=== PATIENT | male | born 1995 | race Caucasian/White ===

== ENCOUNTER 2016-08-06 09:08 | Emergency (ER) | payer OTHER ==
[~2016-08-06] VITALS: Ht 190.5 cm; Wt 92.6 kg
[2016-08-06 09:15] VITALS: TEMP 37.3; Ht 190.5 cm; Wt 92.6 kg
[2016-08-06] MEDS ORDERED: IBUP-1428 PO (09:30)
[2016-08-06] MEDS ORDERED: SODIUM CHLORIDE 0.9% 1000ML 1,000 ML IV STA (09:43)
[2016-08-06 10:12] VITALS: O2SAT 98
[2016-08-06 10:15] LABS: URINE APPEARANCE CLEAR (CLEAR); URINE BILIRUBIN NEG (NEG); URINE COLOR YELLOW; URINE NITRITE NEG (NEG); URINE PH 5.5 (4.5-7.5); UROBILINOGEN NEG (NEG)
[2016-08-06 10:17] LABS: BASO % 0.2 %; BASO ABS # 0.02 K/uL (0-0.2); COMPLETE YES; EOS % 1.3 %; HEMATOCRIT 40.9 % (42-52); IG% 0.3 %; LYMPH % 11.5 %; LYMPH ABS # 1.27 K/uL (1.2-3.4); MEAN CELL VOLUME 79.1 fL (80-100); MEAN CORPUSCULAR HEMOGLOBIN 28.4 pg (25-34); MEAN CORPUSCULAR HGB CONC 35.9 g/dl (32-36); MEAN PLATELET VOLUME 9.4 fL (7.4-10.4); MONO % 6.8 %; NEUT % 79.9 %; PLATELET COUNT 196 K/uL (130-400); RED BLOOD COUNT 5.17 M/uL (4.7-6.1); WHITE BLOOD COUNT 11.05 K/uL (4.8-10.8)
[2016-08-06 10:21] LABS: MANUAL MICROSCOPIC REQUIRED? NO; REVIEW REQ? NO
[2016-08-06 10:35] LABS: INR 1.1 (0.9-1.1); PARTIAL THROMBOPLASTIN RATIO 1.2
[2016-08-06 10:37] LABS: BUN/CREATININE RATIO 9.5 (10-20); CALCIUM 8.9 mg/dl (8.5-10.1); POTASSIUM 3.9 mmol/L (3.5-5.1)
[2016-08-06 10:48] LABS: THYROID STIMULATING HORMONE 0.887 uIu/ml (0.300-4.500)
[2016-08-06 12:31] VITALS: BP 138/76; PULSE 79; O2SAT 97
--- NOTE | 2016-08-06 19:25 | EMERGENCY ROOM VISIT NOTE ---
History Report prepared by Scribe: Brisa Siddiqui Under the Supervision of: Dr. Chad Birmingham M.D. First contact with patient: 09:43 Chief Complaint: ILLNESS Stated Complaint: HYPERTENSION History of Present Illness The patient is a 21 year old male who presents to the Emergency Room with complaints of persistent hypertension. He was dancing at [facility]'s [employer] [place] () this weekend when he suddenly started getting increasingly confused and became very anxious. He went to the Medic station and had his blood pressure checked, and it was found to be elevated, at 161/86. The Medic station referred him to the ED for further evaluation. The patient states he feels exhausted here in the ED and admits to some lightheadedness currently. He states he was drinking water and Gatorade throughout the weekend and denies using any energy drinks or caffeine pills. He does admit to taking 800 mg of Ibuprofen twice daily for "inflammation" in his feet, and notes he started the Ibuprofen about a week before started. His parents deny any family history of hypertension. The patient denies LOC, headache, fevers, chills, diaphoresis, visual changes, neck pain, chest pain, breathing difficulties, nausea, vomiting , abdominal pain, back pain, melena, hematochezia, urinary symptoms, numbness, weakness, lymphadenopathy, rash, or other complaints. He denies any headaches, chest pain, abdominal pain, nausea, vomiting, diarrhea , melena, hematochezia or urinary symptoms. Source of History: patient Onset: PIPELAYING FITTER Position: other (global) Timing: other (persistent) Review of Systems See HPI for pertinent positives and negatives. A total of ten systems were reviewed and were otherwise negative. Past Medical & Surgical Medical Problems: (1) No significant medical problems (2) No significant past surgical history Social History Smoking Status: Never Smoker Alcohol Use: occasionally Drug Use: none Marital Status: single Housing Status: lives with roommate Occupation Status: [employer] student Current/Historical Medications Scheduled PRN Ibuprofen (Motrin), 800 MG PO Q8H PRN for Pain or Fever Allergies Coded Allergies: Nut Tree (Unverified Allergy, Severe, ANAPHYLAXIS, 08/06/16) Peanut (Verified Allergy, Severe, ANAPHYLAXIS, 08/06/16) Physical Exam Vital Signs Date Time Temp Pulse Resp B/P Pulse Ox O2 Delivery O2 Flow Rate FiO2 08/06/16 12:31 79 16 138/76 97 08/06/16 10:49 72 20 130/71 97 Room Air 08/06/16 10:44 71 08/06/16 10:12 98 Room Air 08/06/16 09:15 37.3 96 18 161/86 98 Room Air Physical Exam GENERAL: Awake, alert, well-appearing, in no distress HENT: Normocephalic, atraumatic. Oropharynx unremarkable. EYES: Normal conjunctiva. Sclera non-icteric. NECK: Supple. No nuchal rigidity. FROM. No JVD. RESPIRATORY: Clear to auscultation. CARDIAC: Regular rate, normal rhythm. Extremities warm and well perfused. Pulses equal. ABDOMEN: Soft, non-distended. No tenderness to palpation. No rebound or guarding. No masses. RECTAL: Deferred. MUSCULOSKELETAL: Chest examination reveals no tenderness. The back is symmetrical on inspection without obvious abnormality. There is no CVA tenderness to palpation. No joint edema. LOWER EXTREMITIES: Calves are equal size bilaterally and non-tender. No edema. No discoloration. NEURO: Normal sensorium. No sensory or motor deficits noted. SKIN: No rash or jaundice noted. Medical Decision & Procedures Laboratory Results 08/06/16 10:09 Red Blood Count 5.17, Mean Corpuscular Volume 79.1, Mean Corpuscular Hemoglobin 28.4, Mean Corpuscular Hemoglobin Concent 35.9, Mean Platelet Volume 9.4, Neutrophils (%) (Auto) 79.9, Lymphocytes (%) (Auto) 11.5, Monocytes (%) (Auto) 6.8, Eosinophils (%) (Auto) 1.3, Basophils (%) (Auto) 0.2, Neutrophils # (Auto) 8.84, Lymphocytes # (Auto) 1.27, Monocytes # (Auto) 0.75, Eosinophils # (Auto) 0.14, Basophils # (Auto) 0.02 08/06/16 10:09 Test 08/06/16 09:15 08/06/16 10:09 Urine Color YELLOW Urine Appearance CLEAR (CLEAR) Urine pH 5.5 (4.5-7.5) Urine Specific [place] 1.000 (1.000-1.030) Urine Protein NEG (NEG) Urine Glucose (UA) NEG (NEG) Urine Ketones NEG (NEG) Urine Occult Blood NEG (NEG) Urine Nitrite NEG (NEG) Urine Bilirubin NEG (NEG) Urine Urobilinogen NEG (NEG) Urine Leukocyte Esterase NEG (NEG) White Blood Count 11.05 K/uL (4.8-10.8) Red Blood Count 5.17 M/uL (4.7-6.1) Hemoglobin 14.7 g/dL (14.0-18.0) Hematocrit 40.9 % (42-52) Mean Corpuscular Volume 79.1 fL (80-100) Mean Corpuscular Hemoglobin 28.4 pg (25-34) Mean Corpuscular Hemoglobin Concent 35.9 g/dl (32-36) Platelet Count 196 K/uL (130-400) Mean Platelet Volume 9.4 fL (7.4-10.4) Neutrophils (%) (Auto) 79.9 % Lymphocytes (%) (Auto) 11.5 % Monocytes (%) (Auto) 6.8 % Eosinophils (%) (Auto) 1.3 % Basophils (%) (Auto) 0.2 % Neutrophils # (Auto) 8.84 K/uL (1.4-6.5) Lymphocytes # (Auto) 1.27 K/uL (1.2-3.4) Monocytes # (Auto) 0.75 K/uL (0.11-0.59) Eosinophils # (Auto) 0.14 K/uL (0-0.5) Basophils # (Auto) 0.02 K/uL (0-0.2) RDW Standard Deviation 34.5 fL (36.4-46.3) RDW Coefficient of Variation 11.9 % (11.5-14.5) Immature Granulocyte % (Auto) 0.3 % Immature Granulocyte # (Auto) 0.03 K/uL (0.00-0.02) Prothrombin Time 12.0 SECONDS (9.0-12.0) Prothromb Time International Ratio 1.1 (0.9-1.1) Activated Partial Thromboplast Time 32.2 SECONDS (21.0-31.0) Partial Thromboplastin Ratio 1.2 Anion Gap 9.0 mmol/L (3-11) Est Creatinine Clear Calc Drug Dose 138.5 ml/min Estimated GFR () 123.3 Estimated GFR (Non- 106.4 BUN/Creatinine Ratio 9.5 (10-20) Calcium Level 8.9 mg/dl (8.5-10.1) Total Bilirubin 0.7 mg/dl (0.2-1) Direct Bilirubin 0.2 mg/dl (0-0.2) Aspartate Amino Transf (AST/SGOT) 37 U/L (15-37) Alanine Aminotransferase (ALT/SGPT) 24 U/L (12-78) Alkaline Phosphatase 95 U/L (45-117) Total Creatine Kinase 930 U/L (39-308) Total Protein 7.5 gm/dl (6.4-8.2) Albumin 4.1 gm/dl (3.4-5.0) Lipase 214 U/L (73-393) Thyroid Stimulating Hormone (TSH) 0.887 uIu/ml (0.300-4.500) Laboratory results reviewed by me Medications Administered Medications (Trade) Dose Ordered Sig/Raul Route Start Time Stop Time Status Last Admin Dose Admin Sodium Chloride (Nss 1000ml) 1,000 ml @ 999 mls/hr Q1H1M STAT IV 08/06/16 09:43 08/06/16 10:43 DC 08/06/16 09:43 999 MLS/HR ED Course 0943: NSS 1000 ml @ 999 mls/hr IV. 0947: The patient was evaluated in room A4. A complete history and physical exam was performed. 1055: I reevaluated the patient. He is resting comfortably and his blood pressure is improved. 1230: I reevaluated the patient. He is still feeling well. I discussed his results and discharge instructions and he verbalized complete understanding and agreement. Medical Decision Triage Nursing notes reviewed. The patient's presentation and history were concerning for hypertension and exhaustion. Etiologies such as fatigue, exhaustion, hypertensive emergency, benign hypertension, cardiovascular pathology, pheochromocytoma, electrolyte abnormality, renal disease, endorgan damage, as well as others were entertained. The patient was evaluated. He was very fatigued but had a nonfocal examination. He was mildly hypertensive. The patient was hydrated here and he was allowed to rest. One work was obtained. He had a subtle leukocytosis. His chemistry panel and urinalysis were unremarkable. TSH was negative. His total CK was minimally elevated. I believe this is all due to his exertion and his severe fatigue. He has hardly slept in 48 hours. With rest here his blood pressure improved significantly. He will need close outpatient follow-up. I did ask for the patient to follow up closely with his primary. Patient and family were informed. They were pleased with the treatment. The patient was discharged and instructed to get plenty of rest this evening. He was given a school note for tomorrow. By the evaluation outlined above other emergent etiologies such as those listed in the differential, as well as others, were deemed relatively unlikely. The patient and family were informed about the findings as listed above. All questions were answered and they were pleased with the treatment. Return instructions were outlined and the patient was discharged in stable condition. The patient was referred to [facility] for follow-up this week for a recheck of the current condition. The chart was completed utilizing [employer] voice recognition software. Grammatical errors, random word insertions, pronoun errors, and incomplete sentences are an occasional consequence of this system due to software limitations, ambient noise, and hardware issues. Any formal questions or concerns about the content, text, or information contained within the body of this dictation should be directly addressed to the physician for clarification. Impression Primary Impression: Fatigue Additional Impressions: Hypertension Rhabdomyolysis Scribe Attestation The scribe's documentation has been prepared under my direction and personally reviewed by me in its entirety. I confirm that the note above accurately reflects all work, treatment, procedures, and medical decision making performed by me. Departure Information Dispostion Home / Self-Care Patient Instructions My [facility] Additional Instructions Rest and drink plenty of fluids as tolerated. Resume normal activities once your symptoms resolve. Eat a heart healthy, low fat, low cholesterol diet. Return to the ER immediately for passing out, chest pain, abdominal pain, vomiting, fevers, difficulty breathing, dark urine, muscle pain, worsening of your condition, or as needed. Follow up with [facility] in 2-3 days for a recheck of your current condition. A blood pressure check is recommended. Problem Qualifiers
== END 2016-08-06 12:50 | disposition home or self-care (01) ==
LOC: EDBD 09:08 → C.EDA 09:09
DX: R53.83 Other fatigue (principal); I10 Essential (primary) hypertension; M62.82 Rhabdomyolysis